=== PATIENT | male | born 1970 | race Caucasian/White ===

== ENCOUNTER → 2017-09-01 | Outpatient (CLI) | payer BC ==
--- NOTE | 2017-09-01 10:09 | XR ---
Left shoulder HISTORY: Pain 3 views of the left shoulder Bone mineralization, joint spaces and alignment are maintained. No fracture or dislocation. Left lung apex as visualized is normal. There may be a distal acromial spur. IMPRESSION: Correlate for shoulder impingement, shoulder MRI may be of benefit.
== END | disposition home or self-care (01) ==
LOC: RADXRYALE 08:43
PROVIDERS: ATTEND Family Medicine
DX: M25.512 Pain in left shoulder (principal)

== ENCOUNTER → 2019-07-05 | Outpatient (CLI) | payer BC ==
--- NOTE | 2019-07-05 09:18 | XR ---
EXAMINATION TYPE: XR chest 2V DATE OF EXAM: 07/05/2019 COMPARISON: 10/23/2014 HISTORY: Chest pain TECHNIQUE: Frontal and lateral views of the chest are obtained. FINDINGS: There is no focal air space opacity. No evidence for pneumothorax. No pleural effusion. The cardiac silhouette size is within normal limits. The osseous structures are grossly intact. IMPRESSION: 1. No acute cardiopulmonary process.
== END | disposition home or self-care (01) ==
LOC: RADXRYALE 08:50
PROVIDERS: ATTEND Family Medicine
DX: Z11.1 Encounter for screening for respiratory tuberculosis (principal)
CPT/HCPCS: 71046

== ENCOUNTER → 2020-04-24 | Outpatient (CLI) | payer BC ==
--- NOTE | 2020-04-24 10:54 | MR ---
EXAMINATION TYPE: MR brain wo/w con DATE OF EXAM: 04/24/2020 COMPARISON: None HISTORY: Chronic Migraine TECHNIQUE: Multiplanar, multisequence images of the brain and brainstem is performed without and with IV contras t, utilizing 7.5 mL intravenous Gadavist . FINDINGS: Diffusion weighted images demonstrate no evidence of a recent infarct or other diffusion ab normality. There is no extra-axial fluid collection or significant white matter signal abnormality. The ventricular system and cisternal spaces are normal in size and appearance. The brain volume is age appropriate. Midline structures demonstrate normal morphology, there is some motion on the exam. The craniocervic al junction appears within normal limits. Post contrast images demonstrate no abnormal enhancement. The dural venous sinuses appear patent. The visualized sinuses are remarkable for extensive mucoperio steal thickening in the frontal sinuses, maxillary sinuses, ethmoid air cells, some mild inflammatory change in the mastoids on the left, and the globes are intact. IMPRESSION: Sinus disease
== END | disposition home or self-care (01) ==
LOC: RADMRIMAIN 08:27
PROVIDERS: ATTEND Psychiatry & Neurology Neurology
DX: J32.9 Chronic sinusitis, unspecified (principal); G43.719 Chronic migraine without aura, intractable, without status migrainosus
CPT/HCPCS: 70553; A9585

== ENCOUNTER → 2020-07-07 | Outpatient (CLI) | payer BC ==
--- NOTE | 2020-07-07 07:12 | CT ---
EXAMINATION TYPE: CT sinus wo con DATE OF EXAM: 07/07/2020 COMPARISON: None HISTORY: Chronic Sinusitis CT DLP: 622.[address] of the paranasal sinuses was performed in the axial and coronal planes. Bone and soft tissue settings are submitted. The paranasal sinuses demonstrate normal aeration and development. Medial maxillary antrectomy seen on the left. There is mucosal thickening involving the maxillary sin uses left greater than right, ethmoid air cells, frontal sinuses and sphenoid sinus. No air-fluid lev els identified. The osteal meatal units are patent bilaterally. The nasal septum is midline. No bony destructive changes are seen within the field of view. IMPRESSION: Pansinusitis.
== END | disposition home or self-care (01) ==
LOC: RADCTMAIN 06:42
PROVIDERS: ATTEND Otolaryngology
DX: J32.4 Chronic pansinusitis (principal); J30.89 Other allergic rhinitis; Z88.6 Allergy status to analgesic agent
CPT/HCPCS: 70486; 86001